=== PATIENT | male | born 1955 | race Caucasian/White ===

== ENCOUNTER 2018-03-29 13:36 | Emergency (ER) | payer BC ==
[~2018-03-29] VITALS: Ht 177.8 cm; Wt 102.1 kg
[~2018-03-29 13:36] MED LIST: ANTARA90 MG PO; ASPIRIN EC325 MG PO; DAILY VITAMIN1 EAC2 PO; IBUPROFEN600 MG PO; IMURAN50 MG PO; LANTUS SOL100 UNIT/1 SUB-Q; LEVEMIR100 UNIT/1 SUB-Q; LIPITOR10 MG PO; LISINOPRIL10 MG PO; METFORMIN HCL500 MG PO; METOPROLOL SUCC25 MG PO; PRAVACHOL40 MG PO; TRESIBA FL100 UNIT/1
[2018-03-29] MEDS ORDERED: PRAVASTATIN SOD40 MG PO (13:50)
[2018-03-29] MEDS ORDERED: ISOSORBIDE MONO60 MG PO (13:51)
--- NOTE | 2018-03-29 20:32 | EKG ---
[facility] [address] [facility] [place], [place] [address] Signed Normal sinus rhythm Cannot rule out Inferior infarct , age undetermined Abnormal ECG No previous ECGs available Confirmed by YARY LOWE MD ([id number]) on 03/29/2018 8:31:44 PM Electronically Signed By: YARY LOWE MD 03/29/182031 PATIENT NAME: MICHA RODRIGUEZ Electrocardiogram DATE OF : 51 PHYSICIAN: YARY LOWE MD REPORT #: [id number] REPORT IS CONFIDENTIAL AND NOT TO BE RELEASED WITHOUT AUTHORIZATION
== END 2018-03-29 15:39 | disposition home or self-care (01) ==
LOC: ED 13:36
DX: R10.11 Right upper quadrant pain (principal); Z86.73 Personal history of transient ischemic attack (TIA), and cerebral infarction without residual deficits; E11.9 Type 2 diabetes mellitus without complications; Z88.5 Allergy status to narcotic agent; Z79.899 Other long term (current) drug therapy; Z79.84 Long term (current) use of oral hypoglycemic drugs; Z79.4 Long term (current) use of insulin; Z79.82 Long term (current) use of aspirin
CPT/HCPCS: 71045; 76705; 80053; 81001; 82150; 83690; 84484; 85025; 93005; 93010; 99284

== ENCOUNTER 2018-04-08 10:00 | Day surgery (SDC) | payer BC ==
[~2018-04-08] VITALS: Ht 177.8 cm; Wt 103.0 kg
[~2018-04-08 10:00] MED LIST changes: +ISOSORBIDE MONO60 MG PO; +PRAVASTATIN SOD40 MG PO
--- NOTE | 2018-04-08 13:31 | NUR ---
04/08/18 Kevin1 Tabitha Dunlap 1312- PT ARRIVES TO PACU ON 10 L VIA MASK. OXYGEN SAT HIGH 90'S TO 100% ON THIS. PT IS AROUSABLE, DOES NOT FOLLOW COMMANDS. PT EDUCATED HE IS IN THE RECEOVERY ROOM AND SURGERY IS OVER. 1319- BS TAKEN AND 194. 1322- PT REMAINS ALERT BUT DOES NOT FOLLOW COMMANDS. PT ABLE TO COUGH. SUCTION PERFORMED TO REMOVE SECRETIONS. 1328- OXYGEN TURNED DOWN TO 6L VIA MASK.
--- NOTE | 2018-04-08 18:30 | NUR ---
PT ARRIVED TO UNIT FROM PACU VIA STRETCHER. PT DROWSY BUT EASILY AWAKENED. PT REQUESTING TO USE URINAL, ASSISTED TO EDGE OF BED, 460 ML URINE VOIDED. PT THEN BECAME NAUSEATED, 150 EMESIS. OXYGEN SATURATION NOTED TO BE 88%, 2L OXYGEN VIA NC APPLIED, CURRENT OXYGEN SATURATION NOW 94% ON 2L. PT REPORTED TO BE HYPERTENSIVE WHILE IN PACU, CURRENT BP 187/78, DR. LEE AWARE. PT ASSITED BACK TO BED. LR INFUSING AT 85 ML/HR TO IV SITE, WNL. PT ORIENTED TO ROOM, CONTINUE TO BE DROWSY BUT VERBALIZED UNDERSTANDING. DENEIS OTHER NEEDS AT THIS TIME. CALL LIGHT WITHIN REACH.
--- NOTE | 2018-04-08 19:30 | NUR ---
RECEIVED REPORT FROM DAY SHIFT RN. PATIENT IS RESTING IN BED, BREATHING IS EVEN AND UNLABORED, RR IS 12, O2 SATURATION IS 95% ON 2L O2 VIA NC. PATIENT AWAKENS EASILY, DENIES PAIN, DENIES ANY DISCOMFORT AT THIS TIME. LAP SITES INTACT, NO NEW DRAINAGE NOTED. DENIES NEEDS AT THIS TIME AND STATES "I AM FEELING MUCH BETTER, I JUST WANT TO GET SOME REST TONIGHT." CALL LIGHT WITHIN REACH, AT BEDSIDE.
--- NOTE | 2018-04-08 20:00 | NUR ---
PATIENT RESTING IN BED, BREATHING IS EVEN AND UNLABORED. DENIES NEEDS AT THIS TIME, DENIES PAIN. ASSESSMENT AND VITALS DONE. CALL LIGHT WITHIN REACH.
--- NOTE | 2018-04-08 21:11 | NUR ---
PATIENT REPOSITIONED AND HOB ELEVATED FOR WATER AND JELLO. ONCE SITTING UP, PATIENT REPORTS NAUSEA. PRN ZOFRAN GIVEN FOR NAUSEA. AFTER SEVERAL MINUTES, WHILE PATIENT'S HOB REMAINS ELEVATED, PATIENT REPORTS THAT NAUSEA HAS GONE AWAY. PATIENT TOLERATED JELLO AND SIPS OF WATER WITHOUT ANY NAUSEA. DENIES NEEDS AT THIS TIME AND STATES "I AM FEELING OKAY FOR NOW." CALL LIGHT WITHIN REACH.
--- NOTE | 2018-04-08 22:45 | NUR ---
PATIENT RESTING IN BED, BREATHING IS EVEN AND UNLABORED ON CPAP. IPAP 14, RR SET AT 12, FIO2 30%, O2 SATURATION IS 99%. FLACC SCORE OF 0. CALL LIGHT WITHIN REACH.
--- NOTE | 2018-04-08 23:32 | NUR ---
PATIENT RESTING IN BED, BREATHING IS EVEN AND UNLABORED, RR IS 13, O2 SATURATION IS 99% ON CPAP, IPAP REMAINS AT 14, FIO2 30%. FLACC SCORE OF 0. CALL LIGHT WITHIN REACH.
--- NOTE | 2018-04-09 00:20 | NUR ---
PATIENT RESTING COMFORTABLY IN BED, BREATHING IS EVEN AND UNLABORED. REQUESTING TO TAKE CPAP OFF AND STATES "THIS MACHINE IS TOO LOUD." RT CALLED TO HAVE PATIENT SET UP WITH HOME CPAP SYSTEM. PATIENT DENIES PAIN AT THIS TIME. STOOD AT BEDSIDE TO USE URINAL, PATIENT DENIES FEELING UNSTEADY WHILE STANDING, REPORTS MINIMAL PAIN WITH MOVEMENT. NOW RESTING IN BED AGAIN, STATES THAT PAIN IS GONE WHEN AT REST. DENIES FURTHER NEEDS AT THIS TIME. CALL LIGHT WITHIN REACH.
--- NOTE | 2018-04-09 02:00 | NUR ---
PATIENT RESTING COMFORTABLY IN BED, BREATHING IS EVEN AND UNLABORED. FLACC SCORE OF 0. CALL LIGHT WITHIN REACH.
--- NOTE | 2018-04-09 03:35 | NUR ---
PATIENT RESTING IN BED, BREATHING IS EVEN AND UNLABORED, RR IS 12, O2 SATURATION IS 94% WITH HOME CPAP MACHINE. FLACC SCORE OF 0. CALL LIGHT WITHIN REACH.
--- NOTE | 2018-04-09 04:24 | NUR ---
PATIENT ASSISTED TO STAND AT BEDSIDE TO USE URINAL, GAIT IS STEADY. NOW RESTING IN BED AGAIN, BREATHING IS EVEN AND UNLABORED. DENIES PAIN AT THIS TIME. NO FURTHER NEEDS. ASSESSMENT AND VITALS DONE. CALL LIGHT WITHIN REACH.
--- NOTE | 2018-04-09 06:21 | NUR ---
PATIENT REPOSITIONED FOR COMFORT. DENIES NEEDS AT THIS TIME, DENIES PAIN. APPLIED GAUZE TO UMBILICAL LAP SITE DUE TO SMALL AMOUNT OF SEROSANGUINOUS DRAINAGE. PATIENT STATES "I AM GOING TO TAKE MY CPAP OFF. I HAVE HAD ENOUGH OF IT FOR NOW." PLACED PATIENT ON 2L O2 VIA NC, O2 SATURATION 96%. RR IS 12 WHEN PATIENT IS BACK TO SLEEP. CALL LIGHT WITHIN REACH.
--- NOTE | 2018-04-09 08:29 | NUR ---
PATIENT AWAKE UPON INTIAL ASSESSMENT AND LYING IN BED. PT STATES HE HAS ZERO PAIN AT THIS TIME. PT IS ALERT, ORIENTED X4. PT HAS FIVE LAP SITES ON ABDOMEN WITH STERI STRIPS INTACT. BREAKFAST ORDERED FOR PATIENT. PT HELPED UP TO CHAIR FOR BREAKFAST. PT TRANSFERRING WELL. AM MEDS GIVEN - PT GIVEN 6 UNITS OF INSULIN FOR A CBG OF 237. PT ALSO GIVEN 50 UNITS LANTUS. PLAN IS FOR PATIENT TO D/C HOME TODAY. CONTINUE TO MONITOR.
[2018-04-09] MEDS ORDERED: METOPROLOL TART50 MG PO (10:03)
[2018-04-09] MEDS ORDERED: IBUPROFEN600 MG PO (10:24)
[2018-04-09] MEDS ORDERED: MAPAP325 MG PO (10:25)
--- NOTE | 2018-04-09 22:04 | OR ---
[facility] [address] [place], [place] [address] Signed DATE OF OPERATION: 04/08/2018 SURGEON: Judie Newell MD PREOPERATIVE DIAGNOSES: 1. Chronic and subacute calculous cholecystitis. 2. Incarcerated umbilical hernia. 3. Multiple medical problems. POSTOPERATIVE DIAGNOSES: 1. Chronic and subacute calculous cholecystitis. 2. Incarcerated umbilical hernia. 3. Multiple medical problems. PROCEDURE: 1. Laparoscopic cholecystectomy with intraoperative cholangiogram. 2. Surgeon-directed fluoroscopy. 3. Repair of incarcerated umbilical hernia (separate incision). ANESTHESIA: General endotracheal. ANESTHESIOLOGIST: uJdie Shah CRNA, and local 20 mL of 0.25% Marcaine with epinephrine. 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 He has a number of medical problems including ongoing diabetes mellitus, history of coronary artery bypass grafting and so on. He has had recently persistent recurrent right upper abdominal and right posterior thoracic pain. He was evaluated in the emergency room by Dr. Micha Dominguez recently on March 29, 2018, for severe right subcostal and right flank pain. Evaluation included a chest x-ray, which was normal. CBC and liver enzymes showing mild elevation of AST, and ALT, but normal bilirubin. Troponin was normal. An ultrasound was obtained, which showed possible gallbladder polyp or adherent stone, but no gallbladder wall thickening. His urinalysis was normal. No additional imaging was undertaken. He was discharged home to take Motrin and Tylenol, but had persistent unrelenting pain. I was a consult by his and have evaluated him fully and it is highly probable he Electronically Signed By: JUDIE NEWELL MD 04/09/18 2204 PATIENT NAME: MICHA KHALIL OPERATIVE REPORT DATE OF : 51 REPORT #: [id number] PHYSICIAN: JUDIE NEWELL MD PCP: DELROY NOE DO REPORT IS CONFIDENTIAL AND NOT TO BE RELEASED WITHOUT AUTHORIZATION [facility] [address] [place], [place] [address] Signed does have chronic subacute cholecystitis. A plan and a review of his ultrasound showed adherent debride to the gallbladder wall generally indicative of chronic inflammation of the gallbladder. A consideration for CCK HIDA test was made. Despite this; however, not locally available for over week. Given his unrelenting pain and so forth, they wished to proceed with cholecystectomy preferably by a laparoscopic approach. It is notable also that he points out a hernia at the umbilicus, which is painful from time to time, especially with straining. This is separate and distinct, and it is symptom complex from that of his right subcostal and flank pain. I have advised against a repair formally with implantation of mesh, but through a separate incision, a non mesh repair would be reasonable depending on findings. He agrees to this as well. FINDINGS: The gallbladder was chronically inflamed. The liver was normal. There were dense adhesions of omentum to the undersurface of the gallbladder. Due to abdominal obesity a fan retractor was required to allow for good exposure. Cholecystectomy was performed safely. Intraoperative cholangiogram was normal showing no sign of filling defect or biliary anomaly. He did have a rather long cystic duct. The liver itself was normal. At the umbilicus the fascial defect was approximately 2 cm in size. An incarcerated properitoneal fat and omentum was noted. Hernia repair was undertaken through a separate incision (supraumbilical) allowing for fascial reapproximation. DESCRIPTION OF PROCEDURE: The patient was brought to the operating room, given a general endotracheal anesthetic. Preoperative antibiotic Ancef was given. Sequential compression device stockings used and heparin subcutaneously administered. Preoperative antibiotic Ancef was given. After satisfactory general endotracheal anesthesia, the abdomen was clipped and prepped with chlorhexidine solution and draped sterilely. The nonreducible hernia at the umbilicus was notable. An infraumbilical incision was made and using an open Seble cannula technique pneumoperitoneum was achieved to a level of 14 mmHg of carbon dioxide gas. Intraabdominal inspection showed no sign of ascites, or carcinomatosis. The gallbladder was obscured from view initially due to fatty omentum and so forth obscuring the upper abdomen. Three additional trocars were placed in usual configuration in the subxiphoid, right midclavicular, and right anterior axillary line. The gallbladder was then elevated cephalad exposing the apex of the gallbladder. There were dense omental adhesion to the bulk of the gallbladder. Given his obesity, an additional 5 mm trocar was placed and a fan retractor placed to allow for exposure. With meticulous care, the gallbladder was progressively elevated and omental adhesions taken down with blunt electrocautery dissection. Electronically Signed By: JUDIE NEWELL MD 04/09/18 7226 PATIENT NAME: MICHA KHALIL OPERATIVE REPORT DATE OF : 51 REPORT #: [id number] PHYSICIAN: JUDIE NEWELL MD PCP: DELROY NOE DO REPORT IS CONFIDENTIAL AND NOT TO BE RELEASED WITHOUT AUTHORIZATION [address] [address] Signed The gallbladder was elevated more fully and grasped at the infundibulum using blunt and electrocautery dissection the fatty peritoneal layer over the infundibulum of gallbladder was dissected free ultimately identifying well the cystic duct and cystic artery. The cystic duct was clipped at the gallbladder cystic duct junction. The artery was doubly clipped and subsequently divided. A transverse choledochotomy was made. The cystic duct and egress of clear bile was noted on retrograde milking of the duct. Using the link bird type cholangiocatheter system, intraoperative cholangiography was undertaken showing free flow of contrast in biliary tree with prompt emptying into the duodenum. There was not much retrograde filling of the proximal biliary tree and on that basis morphine 4 mg was administered. Cholangiogram repeated in 5 minutes showing good retrograde filling of biliary tree with no sign of biliary anomaly or other problem. The cystic duct was relatively generous in length. The catheter was removed, and cystic duct was triply clipped and divided and with meticulous care, the gallbladder dissected free in a retrograde fashion. No entry into the gallbladder was made. The gallbladder was extracted through the infraumbilical port site, and opened on the back table and found to have some yellow adherent cholesterol debris, as well as 0.5 cm dark spike type gallstones. A photograph was later taken. The mucosa showed chronic inflammatory change as well. Attention was turned towards the hepatic bed. There was no sign of bile leak or bleeding. Irrigation was undertaken. Excess irrigation fluid suctioned free. Inspection of the periumbilical area showed an umbilical hernia with properitoneal fat and some portion of omentum incarcerated within it. The edge of the hernia defect was identified. Attention was turned toward closure of the infraumbilical fascial incision. It was reapproximated with interrupted 0 Vicryl suture. A curvilinear incision was made in the apex of the umbilical skin and dissection carried through the dermis sharply and ultimately with blunt electrocautery dissection. The incarcerated properitoneal fat was from surrounding soft tissue, replaced to the peritoneal cavity and the fascial edges dissected free more fully. Implantation of mesh was deemed quite inadvisable given the "contaminated" nature of his cholecystectomy. On that basis fascial reapproximation was undertaken with interrupted PDS suture in a vertical mattress configuration. A 20 mL of 0.25% Marcaine with epinephrine injected locally in all the incisions. Irrigation was undertaken and skin closed with interrupted 3-0 Vicryl. Steri-Strips were applied. The patient was ultimately extubated and transferred to recovery room in good condition and suffered no complication. Sponge, needle, and instrument counts reported as correct Electronically Signed By: JUDIE NEWELL MD 04/09/18 2204 PATIENT NAME: MICHA KHALIL OPERATIVE REPORT DATE OF : 51 REPORT #: [id number] PHYSICIAN: JUDIE NEWELL MD PCP: DELROY NOE DO REPORT IS CONFIDENTIAL AND NOT TO BE RELEASED WITHOUT AUTHORIZATION [address] [address] Signed x3. MD ALICE Montano/JOB /[id number] cc: DO Delroy Connolly DO Copies: MICHA DOMINGUEZ KRISTIN B DO ~ Electronically Signed By: JUDIE NEWELL MD 04/09/18 2204 PATIENT NAME: MICHA KHALIL OPERATIVE REPORT DATE OF : 51 REPORT #: [id number] PHYSICIAN: JUDIE NEWELL MD PCP: DELROY NOE DO REPORT IS CONFIDENTIAL AND NOT TO BE RELEASED WITHOUT AUTHORIZATION
--- NOTE | 2018-04-20 16:19 | EKG ---
[facility] [address] [facility] [place], [place] [address] Signed Normal sinus rhythm Left atrial enlargement Possible Inferior infarct (cited on or before 29-MAR-2018) ST \T\ T wave abnormality, consider lateral ischemia Abnormal ECG When compared with ECG of 07-APR-2018 13:03, No significant change was found Confirmed by WING MASCORRO DO ([id number]) on 04/20/2018 4:19:21 PM Electronically Signed By: WING MASCORRO DO 04/20/18 1619 PATIENT NAME: MICHAELMICHA HUBERT Electrocardiogram DATE OF : 51 PHYSICIAN: WING MASCORRO DO REPORT #: [id number] REPORT IS CONFIDENTIAL AND NOT TO BE RELEASED WITHOUT AUTHORIZATION
== END 2018-04-09 10:55 | disposition home or self-care (01) ==
LOC: DS 10:00 → OPS 10:00 → MS 10:01 → OPS 11:15 → DS 11:15 → CCU 18:15 → OPS 04-09 10:39 → MS 04-09 10:39 → OPS 04-09 10:55 → CCU 04-09 10:55
PROVIDERS: Surgery
PROC: 0WQF0ZZ Repair Abdominal Wall, Open Approach (ICD-10-PCS; 2018-04-08)
PROC: 0FT44ZZ Resection of Gallbladder, Percutaneous Endoscopic Approach (ICD-10-PCS; principal; 2018-04-08 11:15)
PROC: BF101ZZ Fluoroscopy of Bile Ducts using Low Osmolar Contrast (ICD-10-PCS; 2018-04-08 11:15)
DX: K80.10 Calculus of gallbladder with chronic cholecystitis without obstruction (principal); K42.0 Umbilical hernia with obstruction, without gangrene; E66.9 Obesity, unspecified; I25.10 Atherosclerotic heart disease of native coronary artery without angina pectoris; T41.0X5A Adverse effect of inhaled anesthetics, initial encounter; J96.02 Acute respiratory failure with hypercapnia; J96.01 Acute respiratory failure with hypoxia; E11.40 Type 2 diabetes mellitus with diabetic neuropathy, unspecified; I10 Essential (primary) hypertension; G47.33 Obstructive sleep apnea (adult) (pediatric); Z86.73 Personal history of transient ischemic attack (TIA), and cerebral infarction without residual deficits; Z79.82 Long term (current) use of aspirin; Z79.4 Long term (current) use of insulin; Z68.32 Body mass index [BMI] 32.0-32.9, adult; Z88.5 Allergy status to narcotic agent; Z95.1 Presence of aortocoronary bypass graft; Z98.890 Other specified postprocedural states; Z79.51 Long term (current) use of inhaled steroids; Z79.899 Other long term (current) drug therapy
CPT/HCPCS: 00790; 36600; 74300; 82803; 93005; 93010; 94660; J0131; J0330; J0690; J1100; J1644; J1815; J1885; J2250; J2270; J2310; J2405; J2704; J2765; J3010; J7120; Q9967